=== PATIENT | female | born 1995 | race Caucasian/White ===

== ENCOUNTER 2022-08-13 17:27 | Emergency (ER) | payer SELFPAY ==
[2022-08-13 17:33] VITALS: BP 138/91; PULSE 104; RESP 18; TEMP 37.5; O2SAT 97; BMI 32.9
--- NOTE | 2022-08-13 17:45 | XR_ITS ---
[address] [address] Patient Name: ALON HESS MRN: [id number] date: 1995 Sex: F Assigned Patient Location: ED.MAIN Current Patient Location: ED.MAIN Accession/Order Number: [id number] Exam Date: 08/13/2022 18:02 Report Date: 08/13/2022 18:52 At the request of: SHAHRAM SALEEM Procedure: XR foot LT min 3V EXAM: XR foot LT min 3V, XR ankle LT min 3V HISTORY: No history given COMPARISON: None. TECHNIQUE: 3 views of the ankle and 3 views of the foot FINDINGS: No osseous lesion, fracture, dislocation or subluxation. Joint spaces are normal. No visualized effusion. No visualized soft tissue edema. IMPRESSION: Normal x-rays Electronically authenticated by: AARON VAUGHN Date: 08/13/2022 18:52
--- NOTE | 2022-08-13 17:45 | XR_ITS ---
[address] [address] Patient Name: ALON HESS MRN: [id number] date: 1995 Sex: F Assigned Patient Location: ED.MAIN Current Patient Location: ED.MAIN Accession/Order Number: [id number] Exam Date: 08/13/2022 18:02 Report Date: 08/13/2022 18:52 At the request of: SHAHRAM SALEEM Procedure: XR ankle LT min 3V EXAM: XR foot LT min 3V, XR ankle LT min 3V HISTORY: No history given COMPARISON: None. TECHNIQUE: 3 views of the ankle and 3 views of the foot FINDINGS: No osseous lesion, fracture, dislocation or subluxation. Joint spaces are normal. No visualized effusion. No visualized soft tissue edema. IMPRESSION: Normal x-rays Electronically authenticated by: AARON VAUGHN Date: 08/13/2022 18:52
--- NOTE | 2022-08-13 17:52 | ED.GENADUL1 ---
Documented by User: Renee Mazariegos 08/13/22 19:16 HPI - General Adult General Chief complaint: Extremity Injury, Lower Stated complaint: LOWER EXTREMITY INJURY Time Seen by Provider: 08/13/22 17:42 Source: patient and family Mode of arrival: walk-in Limitations: no limitations History of Present Illness HPI narrative: 26 year old female presents to the ED for pain to her left foot and ankle s/p injury last night. Reports she slipped while wearing flip flops and rolled her ankle. Reports she has shooting pain up her lower leg with certain movements. Denies N/T, weakness. Denies injury to other areas. She took OTC pain medication a few hours ago. States there is a chance of ; her LNMP was 06/28/22. Related Data Previous Rx's Medication Instructions Recorded hydrocodone 5 mg-acetaminophen 325 1 tab PO BID PRN pain 3 days #6 08/13/22 mg tablet tabs naproxen 500 mg tablet (Naprosyn) 500 mg PO BID PRN pain #14 tabs 08/13/22 Allergies Allergy/AdvReac Type Severity Reaction Status Date / Time Penicillins Allergy Severe Anaphylaxis Verified 08/13/22 17:33 Review of Systems ROS Constitutional Denies: fever, chills or fatigue Cardiovascular Denies: chest pain Respiratory Denies: shortness of breath Gastrointestinal Denies: abdominal pain Musculoskeletal Reports: extremity pain; Denies: back pain or neck pain Integumentary/Breast Denies: rash or sores Neurological Denies: headache or dizziness Exam Constitutional Vital Signs - 24 hr 08/13/22 17:33 Temperature 99.5 F Pulse Rate [Monitor] 104 H Respiratory Rate 18 Blood Pressure [Right Arm] 138/91 H Pulse Oximetry 97 Oxygen Delivery Method Room Air Common normals: no apparent distress and oriented x3 General appearance: cooperative Orientation/consciousness: Yes awake HENMT Common normals: normocephalic Face and sinus: face symmetric Eye Common normals: no scleral icterus Neck & C-Spine Common normals: supple Chest Chest: symmetrical chest wall rise Respiratory Common normals: normal respiratory effort Effort & inspection: no stridor Cardio Common normals: regular rate Peripheral pulses: posterior tibial pulses present and dorsalis pedis pulses present Extremity Left lower extremity: knee joint Left knee: inspection (No swelling noted. ), palpation (Denies tenderness. ) and ROM, ankle joint Left ankle: inspection (Mild swelling), palpation (Tenderness, mainly lateral aspect), ROM (Decreased ROM due to pain. ) and neurovascular exam (Distal sensation intact.) and foot and digits Left foot and digits: inspection (Minimal swelling), palpation (Tenderness to top of foot), ROM (Decreased ROM due to pain), neurovascular exam (Distal sensation intact) and tendon exam (No tenderness or deformity over Achilles. ) Neuro Common normals: oriented x3 Sensorium/orientation: awake and alert Speech: speech normal Course Vital Signs Vital signs: Vital Signs Temperature 99.5 F 08/13/22 17:33 Pulse Rate 104 H 08/13/22 17:33 Respiratory Rate 18 08/13/22 17:33 Blood Pressure 138/91 H 08/13/22 17:33 Pulse Oximetry 97 08/13/22 17:33 Oxygen Delivery Method Room Air 08/13/22 17:33 Temperature 99.5 F 08/13/22 17:33 Pulse Rate 104 H 08/13/22 17:33 Respiratory Rate 18 08/13/22 17:33 Blood Pressure 138/91 H 08/13/22 17:33 Pulse Oximetry 97 08/13/22 17:33 Oxygen Delivery Method Room Air 08/13/22 17:33 Medical Decision Making MDM Narrative Medical decision making narrative: X-rays of the left foot and ankle were negative for acute findings. Her urine was negative. She was given medication for her discomfort here; a ride was present. An maninder wrap and air cast were applied. The applications were checked and were appropriate; the LLE remained NVI. She was fitted for crutches and teaching was done. OARRS was reviewed. Prescriptions were provided for naprosyn and norco. Follow up with pcp and/or podiatry for a recheck, further evaluation and treatment. Medical Records Medical records reviewed: Yes I reviewed the patient's medical records Lab Data Labs: Lab Results 08/13/22 Range/Units 18:33 Urine HCG, Qual Negative (NEGATIVE) Imaging Data Left foot/ankle x-rays: Radiologist's impression: Procedure:? XR ankle LT min 3V ? EXAM: XR foot LT min 3V, XR ankle LT min 3V ? HISTORY: No history given ? COMPARISON: None. ? TECHNIQUE: 3 views of the ankle and 3 views of the foot ? FINDINGS: ? No osseous lesion, fracture, dislocation or subluxation. Joint spaces are normal. No visualized effusion. No visualized soft tissue edema. ? IMPRESSION: ? Normal x-rays ? Electronically authenticated by: KAMLESH VAUGHN ? Date: 08/13/2022? 18:52 Procedure:? XR foot LT min 3V ? EXAM: XR foot LT min 3V, XR ankle LT min 3V ? HISTORY: No history given ? COMPARISON: None. ? TECHNIQUE: 3 views of the ankle and 3 views of the foot ? FINDINGS: ? No osseous lesion, fracture, dislocation or subluxation. Joint spaces are normal. No visualized effusion. No visualized soft tissue edema. ? IMPRESSION: ? Normal x-rays ? ? Electronically authenticated by: KAMLESH VAUGHN ? Date: 08/13/2022? 18:52 Discharge Plan Discharge Chief Complaint: Extremity Injury, Lower Clinical Impression: Ankle sprain and strain Patient Disposition: Home, Self-Care Time of Disposition Decision: 19:01 Condition: Good Mode of Transportation: Private Vehicle Prescriptions / Home Meds: New naproxen [Naprosyn] 500 mg tablet 500 mg PO BID PRN (Reason: pain) Qty: 14 0RF hydrocodone-acetaminophen 5-325 mg tablet 1 tab PO BID PRN (Reason: pain) 3 Days Qty: 6 0RF Instructions: Ankle Sprain (ED), Crutch Instructions (ED), Ankle Stirrup Splint (ED) Stand Alone Forms: Portal Instructions Referrals: Physician,Non-Staff, [Primary Care Provider] - 1 week Horacio Gentile MD [Physician] - 1 week Documented by User: Gelacio Shearer MD 08/13/22 19:28 HPI - General Adult General Chief complaint: Extremity Injury, Lower Stated complaint: LOWER EXTREMITY INJURY Time Seen by Provider: 08/13/22 17:42 Related Data Previous Rx's Medication Instructions Recorded hydrocodone 5 mg-acetaminophen 325 1 tab PO BID PRN pain 3 days #6 08/13/22 mg tablet tabs naproxen 500 mg tablet (Naprosyn) 500 mg PO BID PRN pain #14 tabs 08/13/22 Allergies Allergy/AdvReac Type Severity Reaction Status Date / Time Penicillins Allergy Severe Anaphylaxis Verified 08/13/22 17:33 Exam Constitutional Vital Signs - 24 hr 08/13/22 17:33 Temperature 99.5 F Pulse Rate [Monitor] 104 H Respiratory Rate 18 Blood Pressure [Right Arm] 138/91 H Pulse Oximetry 97 Oxygen Delivery Method Room Air Course Vital Signs Vital signs: Vital Signs Temperature 99.5 F 08/13/22 17:33 Pulse Rate 104 H 08/13/22 17:33 Respiratory Rate 18 08/13/22 17:33 Blood Pressure 138/91 H 08/13/22 17:33 Pulse Oximetry 97 08/13/22 17:33 Oxygen Delivery Method Room Air 08/13/22 17:33 Temperature 99.5 F 08/13/22 17:33 Pulse Rate 104 H 08/13/22 17:33 Respiratory Rate 18 08/13/22 17:33 Blood Pressure 138/91 H 08/13/22 17:33 Pulse Oximetry 97 08/13/22 17:33 Oxygen Delivery Method Room Air 08/13/22 17:33 Medical Decision Making MDM Narrative Medical decision making narrative: X-rays of the left foot and ankle were negative for acute findings. Her urine was negative. She was given medication for her discomfort here; a ride was present. An maninder wrap and air cast were applied. The applications were checked and were appropriate; the LLE remained NVI. She was fitted for crutches and teaching was done. OARRS was reviewed. Prescriptions were provided for naprosyn and norco. Follow up with pcp and/or podiatry for a recheck, further evaluation and treatment. Procedure note: Patient was placed in Maninder wrap, Aircast, and crutches. Splint was assisted with . the patient was neurovascularly intact before and after the splint was placed. the affected bones/injured area had proper alignment in a splint. Education on splint care at home was given at bedside. Patient and family have no questions at discharge. Lab Data Labs: Lab Results 08/13/22 Range/Units 18:33 Urine HCG, Qual Negative (NEGATIVE) Discharge Plan Discharge Chief Complaint: Extremity Injury, Lower Clinical Impression: Ankle sprain and strain Patient Disposition: Home, Self-Care Time of Disposition Decision: 19:01 Condition: Good Mode of Transportation: Private Vehicle Prescriptions / Home Meds: New naproxen [Naprosyn] 500 mg tablet 500 mg PO BID PRN (Reason: pain) Qty: 14 0RF hydrocodone-acetaminophen 5-325 mg tablet 1 tab PO BID PRN (Reason: pain) 3 Days Qty: 6 0RF Instructions: Ankle Sprain (ED), Crutch Instructions (ED), Ankle Stirrup Splint (ED) Stand Alone Forms: Portal Instructions Referrals: Physician,Non-Staff, [Primary Care Provider] - 1 week Horacio Gentile MD [Physician] - 1 week
[2022-08-13 18:41] LABS: HCG Qualitative Urine* NEGATIVE (NEGATIVE)
== END 2022-08-13 19:37 | disposition home or self-care (01) ==
PROVIDERS: Nurse Practitioner Family; Emergency Provider Emergency Medicine
DX: S93.402A Sprain of unspecified ligament of left ankle, initial encounter (principal); S96.912A Strain of unspecified muscle and tendon at ankle and foot level, left foot, initial encounter; W18.40XA Slipping, tripping and stumbling without falling, unspecified, initial encounter
CPT/HCPCS: 73610; 73630; 84703; 99284